=== PATIENT | male | born 2000 | race Caucasian/White ===

== ENCOUNTER 2020-10-17 08:11 | Observation (INO) | payer BC ==
[~2020-10-17] VITALS: Ht 175.3 cm; Wt 93.0 kg
[2020-10-17] VITALS (8 sets, daily range): BP systolic 117–145; BP diastolic 52–82
[2020-10-17 09:29] LABS: HEMATOCRIT 46.6 % (39.0-50.0); HEMOGLOBIN 15.9 g/dl (14.0-18.0); IMMATURE GRANULOCYTES 0.2 % (0.0-5.0); MEAN CELL VOLUME 86.9 fL CALC (80.0-100.0); MEAN CORPUSCULAR HGB 29.7 pG CALC (26.0-32.0); MEAN CORPUSCULAR HGB CONC 34.1 g/dL CAL (32.0-36.0); NEUT# 15.16 thou/uL (1.82-7.42); RED BLOOD COUNT 5.36 mill/uL (4.70-6.10); RED CELL DISTRI WIDTH 12.6 % (11.5-15.5)
[2020-10-17 09:43] LABS: ALBUMIN 4.9 g/dL (3.2-5.0); ALKALINE PHOSPHATASE 78 u/l (38-126); AMYLASE 77 u/l (30-110); ANION GAP 16 (6-22 (CALC)); BILIRUBIN, TOTAL 1.5 mg/dL (0.0-1.4); BUN 11 mg/dL (9-20); BUN/CREATININE RATIO 12 (12-20 (CALC)); CARBON DIOXIDE 24 mmol/l (22-30); CHLORIDE 103 mmol/l (95-108); GFR > 60 ML/MIN (>=60 (CALC)); GFR FOR AFR.AMER. > 60 ML/MIN (>=60 (CALC)); LIPASE 21 u/l (23-300); POTASSIUM 3.6 mmol/l (3.5-5.1); SGOT/AST 22 u/l (17-59); SODIUM 140 mmol/l (137-146); TOTAL PROTEIN 8.3 g/dL (6.3-8.2)
[2020-10-17 09:59] LABS: URINE BILIRUBIN - DIPSTICK NEGATIVE (NEGATIVE); URINE BLOOD DIPSTICK TRACE-INTACT (NEGATIVE); URINE COLOR YELLOW; URINE GLUCOSE - DIPSTICK NEGATIVE (NEGATIVE); URINE KETONE NEGATIVE (NEGATIVE); URINE LEUK ESTERASE NEGATIVE (NEGATIVE); URINE PH 6.5 (4.5-8.0); URINE PROTEIN - DIPSTICK NEGATIVE (NEG-TRACE); URINE UROBILINOGEN - DIPSTICK 0.2 E.U./dL (0.2)
[2020-10-17 10:02] LABS: URINE NITRITE - DIPSTICK NEGATIVE (Negative)
[2020-10-18] VITALS (7 sets, daily range): BP systolic 111–180; BP diastolic 51–96
[2020-10-18 05:56] LABS: BUN 6 mg/dL (9-20); BUN/CREATININE RATIO 8 (12-20 (CALC)); CHLORIDE 105 mmol/l (95-108); CREATININE 0.8 mg/dL (0.7-1.3); GFR > 60 ML/MIN (>=60 (CALC)); GFR FOR AFR.AMER. > 60 ML/MIN (>=60 (CALC)); HEMATOCRIT 46.8 % (39.0-50.0); HEMOGLOBIN 15.9 g/dl (14.0-18.0); MAGNESIUM 2.1 mg/dL (1.6-2.3); MEAN CELL VOLUME 88.5 fL CALC (80.0-100.0); MEAN CORPUSCULAR HGB 30.1 pG CALC (26.0-32.0); POTASSIUM 4.2 mmol/l (3.5-5.1); RED BLOOD COUNT 5.29 mill/uL (4.70-6.10); RED CELL DISTRI WIDTH 12.9 % (11.5-15.5); SODIUM 139 mmol/l (137-146)
[2020-10-18 06:02] LABS: ANION GAP 19 (6-22 (CALC)); CARBON DIOXIDE 19 mmol/l (22-30)
[2020-10-18] MEDS ORDERED: ZOFRAN4 MG/TAB PO (14:53)
[2020-10-18] MEDS ORDERED: HYDROCO/APAP1 TA9 PO (14:54)
== END 2020-10-18 15:56 | disposition home or self-care (01) | DRG 343 ==
LOC: ED 08:11 → ED-I 11:15 → ED 11:32 → MS2 11:33
PROVIDERS: Emergency Medicine; Nurse Practitioner; ADMIT Hospitalist; ATTEND Hospitalist
PROC: 0DTJ4ZZ Resection of Appendix, Percutaneous Endoscopic Approach (ICD-10-PCS; principal; 2020-10-17)
DX: K35.30 Acute appendicitis with localized peritonitis, without perforation or gangrene (principal); Z20.822 Contact with and (suspected) exposure to COVID-19
CPT/HCPCS: G0378; J2710; Q9967

== ENCOUNTER 2021-04-20 22:54 | Emergency (ER) | payer BC ==
[~2021-04-20] VITALS: Ht 175.3 cm; Wt 90.0 kg
[~2021-04-20 22:54] MED LIST: HYDROCO/APAP1 TA9 PO; ZOFRAN4 MG/TAB PO
[2021-04-20 22:58] VITALS: BP 146/87
[2021-04-20] MEDS ORDERED: AMOXICILLIN500 MG PO (23:31)
== END 2021-04-20 23:53 | disposition home or self-care (01) | DRG 605 ==
LOC: ED 22:54
PROC: 0HQGXZZ Repair Left Hand Skin, External Approach (ICD-10-PCS; principal; 2021-04-20)
DX: S61.412A Laceration without foreign body of left hand, initial encounter (principal); W27.2XXA Contact with scissors, initial encounter; Y92.009 Unspecified place in unspecified non-institutional (private) residence as the place of occurrence of the external cause

== ENCOUNTER 2022-10-02 18:56 | Emergency (ER) | payer OTHER, BC ==
[~2022-10-02] VITALS: Ht 175.3 cm; Wt 88.0 kg
[~2022-10-02 18:56] MED LIST changes: +AMOXICILLIN500 MG PO
[2022-10-02 20:13] LABS: BASO% 0.6 % (0-3); EOS% 0.7 % (0-8); HEMATOCRIT 49.7 % (39.0-50.0); HEMOGLOBIN 16.6 g/dl (14.0-18.0); IMMATURE GRANULOCYTES 0.2 % (0.0-5.0); LYMPH% 15.9 % (15-41); MEAN CELL VOLUME 87.5 fL CALC (80.0-100.0); MEAN CORPUSCULAR HGB 29.2 pG CALC (26.0-32.0); MEAN CORPUSCULAR HGB CONC 33.4 g/dL CAL (32.0-36.0); MONO% 4.6 % (2-13); NEUT# 9.89 thou/uL (1.82-7.42); RED BLOOD COUNT 5.68 mill/uL (4.70-6.10); RED CELL DISTRI WIDTH 12.3 % (11.5-15.5)
[2022-10-02 20:32] LABS: ALBUMIN 5.4 g/dL (3.2-5.0); ALKALINE PHOSPHATASE 114 u/l (38-126); ANION GAP 20 (6-22 (CALC)); BILIRUBIN, TOTAL 1.4 mg/dL (0.2-1.3); BUN 18 mg/dL (9-20); BUN/CREATININE RATIO 19 (12-20 (CALC)); CARBON DIOXIDE 20 mmol/l (22-30); CHLORIDE 107 mmol/l (95-108); GFR FOR AFR.AMER. > 60 ML/MIN (>=60 (CALC)); GFR OTHER RACES > 60 ML/MIN (>=60 (CALC)); POTASSIUM 4.9 mmol/l (3.5-5.1); SGOT/AST 38 u/l (17-59); SODIUM 142 mmol/l (137-146); TOTAL PROTEIN 9.2 g/dL (6.3-8.2)
[2022-10-02] MEDS ORDERED: CEPHALEXIN500 MG PO (21:06)
[2022-10-02 21:56] VITALS: BP 130/88
== END 2022-10-02 21:56 | disposition home or self-care (01) | DRG 605 ==
LOC: ED 18:56
PROVIDERS: Emergency Medicine
DX: S51.832A Puncture wound without foreign body of left forearm, initial encounter (principal); Y35.491A Legal intervention involving other sharp objects, law enforcement official injured, initial encounter; Y92.149 Unspecified place in prison as the place of occurrence of the external cause